=== PATIENT | male | born 1965 | race Caucasian/White ===

== ENCOUNTER 2016-07-22 07:55 | Emergency (ER) | payer BC ==
[2016-07-22] MEDS ORDERED: ASPIRIN 81 MG TABLET, CHEWABLE PO ONE (08:06)
[2016-07-22] MEDS ORDERED: KETOROLAC TROMETHAMINE INJ/PF 30 MG/1 ML SDV IV ONE (08:44)
--- NOTE | 2016-07-22 08:44 | ER Document Report ---
ED Cardiac - General Mode of Arrival: Ambulatory Information source: Patient TRAVEL OUTSIDE OF THE [place] IN LAST 30 DAYS: No - HPI Patient complains to provider of: Chest pain Chest pain location: Substernal, Back Quality of pain: Burning, Pressure Chest pain radiation location: Back - left Chest pain precipitating factors: Physical Exertion Associated symptoms: Other - see notes above <GORGE BISWAS - Last Filed: 07/22/16 08:48> <JANNET SMITH - Last Filed: 07/22/16 09:54> - General Chief Complaint: Chest Pain Stated Complaint: CHEST PAIN Notes: 50 year old male with history of hyperlipidemia presents to the ED complaining of burning substernal chest pressure that radiates to the left back which started 2 days ago. Patient reports that he hasn't noticed anything that makes the chest pain worse or better. Patient does explain that he has been doing increased work around the house to prepare for his [id number]'s baby shower. Patient denies aspirin use. (GORGE BISWAS) - Related Data Allergies/Adverse Reactions: No Known Allergies Allergy (Unverified 11/13/13 20:02) Past Medical History - General Information source: Patient - Social History Smoking Status: Never Smoker Chew tobacco use (# tins/day): No Frequency of alcohol use: None Drug Abuse: None Family History: Reviewed & Not Pertinent Patient has suicidal ideation: No Patient has homicidal ideation: No - Past Medical History Cardiac Medical History: Reports: Hx Hypercholesterolemia Renal/ Medical History: Denies: Hx Peritoneal Dialysis GI Medical History: Comment Only: Hx Gastroesophageal Reflux Disease - HAD SURGERY FOR IT NO MEDS Past Surgical History: Reports: Hx Abdominal Surgery - Inguinal hernia repair and Maribeth fundoplication, Hx Orthopedic Surgery - left knee x2; Right 1st digit ; Left bicep reattachment <GORGE BISWAS - Last Filed: 07/22/16 08:48> Review of Systems - Review of Systems Constitutional: No symptoms reported EENT: No symptoms reported Cardiovascular: See HPI, Chest pain - substernal that radiates to left back Respiratory: No symptoms reported Gastrointestinal: No symptoms reported Genitourinary: No symptoms reported Male Genitourinary: No symptoms reported Musculoskeletal: No symptoms reported Skin: No symptoms reported Hematologic/Lymphatic: No symptoms reported Neurological/Psychological: No symptoms reported -: Yes All other systems reviewed and negative <GORGE BISWAS - Last Filed: 07/22/16 08:48> Physical Exam - General General appearance: Alert In distress: None - HEENT Head: Normocephalic, Atraumatic Eyes: Normal Extraocular movements intact: Yes Pupils: PERRL - Respiratory Respiratory status: No respiratory distress Breath sounds: Normal Chest palpation: Tender - Tenderness to palpation over the left anterior inferior ribs especially going out laterally - Cardiovascular Rhythm: Regular Heart sounds: Normal auscultation - Abdominal Inspection: Normal - Back Back: Normal - Extremities General upper extremity: Normal inspection, Normal ROM General lower extremity: Normal inspection, Normal ROM - Neurological Neuro grossly intact: Yes - Psychological Associated symptoms: Normal affect, Normal mood - Skin Skin Temperature: Warm Skin Moisture: Dry Skin Color: Normal <GORGE BISWAS - Last Filed: 07/22/16 08:48> Course - Laboratory Result Diagrams: 07/22/16 08:19 07/22/16 08:19 <GORGE BISWAS - Last Filed: 07/22/16 08:48> - Laboratory Result Diagrams: 07/22/16 08:19 07/22/16 08:52 - Diagnostic Test Radiology reviewed: Image reviewed, Reports reviewed - Chest x-ray is unremarkable - EKG Interpretation by Al EKG shows normal: Sinus rhythm, Gallion, Intervals, QRS Complexes, ST-T Waves Rate: Normal - 70 Rhythm: NSR <JANNET SMITH - Last Filed: 07/22/16 09:54> - Re-evaluation Re-evalutation: 07/22/16 09:52 EKG is normal. Troponin is undetectable despite 2 days of pain. The pain is reproducible on palpation, there is a clearly identifiable reason for developing this pain with respect to the cleaning at work she has been doing around the house. (JANNET SMITH) - Vital Signs Vital signs: Temp Pulse Resp BP Pulse Ox 98.5 F 71 14 136/96 H 97 07/22/16 08:02 07/22/16 08:02 07/22/16 09:01 07/22/16 09:01 07/22/16 09:01 - Laboratory Laboratory results interpreted by me: 07/22/16 08:52 Creatine Kinase 231 H Discharge <GORGE BISWAS - Last Filed: 07/22/16 08:48> <JANNET SMITH - Last Filed: 07/22/16 09:54> - Discharge Clinical Impression: Anterior chest wall pain Condition: Stable Disposition: HOME, SELF-CARE Additional Instructions: Chest Wall Pain: Your chest pain has been diagnosed as coming from the chest wall. This is often caused by straining the muscles or joints in the chest during physical activity, direct trauma, coughing, or vigorous vomiting. Persons with arthritis are especially prone to this type of pain, due to inflammation of the cartilage joints near the breast bone. Occasionally, no cause can be found. Rest from strenuous physical activity. This kind of chest pain is usually made worse by movement of the chest. Depending on the symptoms, we may recommend medicine for pain and antiinflammatory effects, such as Motrin or Aleve. If the pain is new, and seems to be due to muscle strain, cold packs can help. Otherwise, apply gentle warmth to the painful area for 15 minutes every hour or two. You should contact the doctor immediately if things change. Further evaluation is needed if you develop a fever or cough, if the nature of the pain changes, or if you become short of breath. RETURN TO THE EMERGENCY ROOM IF ANY NEW OR WORSENING SYMPTOMS. Referrals: MILI ROY MD [Primary Care Provider] - Follow up as needed Scribe Attestation: 07/22/16 09:54 I personally performed the services described in the documentation, reviewed and edited the documentation which was dictated to the scribe in my presence, and it accurately records my words and actions. (JANNET SMITH) Scribe Documentation - Scribe Written by Gemini:: Gemini Canas, 07/22/2016 [id number] acting as scribe for :: [place] <GORGE BISWAS - Last Filed: 07/22/16 08:48>
[2016-07-22 08:51] LABS: ABSOLUTE EOSINOPHILS # (AUTO) 0.2 10^3/uL (0.0-0.6); ABSOLUTE LYMPHOCYTES (AUTO) 1.8 10^3/uL (0.5-4.7); ABSOLUTE MONOCYTES (AUTO) 0.5 10^3/uL (0.1-1.4); ABSOLUTE NEUT (AUTO) 3.1 10^3/uL (1.7-8.2); BASOPHILS % (AUTO) 0.3 % (0-2); EOSINOPHILS % (AUTO) 4.3 % (0-6); LYMPHOCYTES % (AUTO) 32.1 % (13-45); MEAN CORPUSCULAR VOLUME 83 fl (80-97); MONOCYTES % (AUTO) 9.3 % (3-13); RED BLOOD COUNT 5.18 10^6/uL (4.35-5.55); RED CELL DISTRIBUTION WIDTH 13.2 % (11.5-14.0); WHITE BLOOD COUNT 5.7 10^3/uL (4.0-10.5)
[2016-07-22 09:28] LABS: ALANINE AMINOTRANSFERASE 44 U/L (21-72); ALBUMIN 4.3 g/dL (3.5-5.0); ALKALINE PHOSPHATASE 74 U/L (38-126); ANION GAP 12 (5-19); ASPARTATE AMINO TRANSFERASE 25 U/L (17-59); BILIRUBIN,DIRECT 0.1 mg/dL (0.0-0.4); BLOOD UREA NITROGEN 18 mg/dL (7-20); CARBON DIOXIDE 24 mmol/L (22-30); CHLORIDE 106 mmol/L (98-107); CREATINE KINASE 231 U/L (55-170); CREATININE RESULT 1.06 mg/dL (0.52-1.25); GLUCOSE 103 mg/dL (75-110); POTASSIUM 4.1 mmol/L (3.6-5.0); SODIUM 142.2 mmol/L (137-145); TOTAL PROTEIN 6.9 g/dL (6.3-8.2)
[2016-07-22 09:39] LABS: CREATINE KINASE MB 1.96 ng/mL (<4.55)
[2016-07-22 09:40] LABS: TROPONIN I < 0.012 ng/mL
[2016-07-22 10:06] VITALS: BP 136/97
--- NOTE | 2016-07-22 10:08 | EKG REPORT ---
SEVERITY:- BORDERLINE ECG - SINUS RHYTHM EARLY PRECORDIAL TRANSITION, LEAD PLACEMENT ERROR VS OLF TRUE POST VT, CLINICAL CORRELATION., : Confirmed by: Rakesh Resendiz MD 22-Jul-2016 10:07:38
== END 2016-07-22 10:06 | disposition home or self-care (01) ==
LOC: ER 07:55
DX: R07.89 Other chest pain (principal); E78.5 Hyperlipidemia, unspecified; E78.00 Pure hypercholesterolemia, unspecified
CPT/HCPCS: 93005; 99285; 96374; 36415; 82553; 82550; 85025; 80053; 84484; 71010; 93010; J1885